=== PATIENT | male | born 1970 | race Caucasian/White ===

== ENCOUNTER 2018-09-26 21:22 | Emergency (ER) | payer BC ==
[2018-09-26] MEDS ORDERED: Diph,Pert(Acell),Tet Vac 0.5 ML SYR IM ONE (21:48)
--- NOTE | 2018-09-26 21:54 | Emergency Department Record ---
History of Present Illness - General Chief Complaint: Fall Injury Stated Complaint: FALL INJURY Time Seen by Provider: 09/26/18 21:44 Source: Patient Mode of Arrival: Ambulatory Limitations: No limitations - History of Present Illness Initial Comments: 48 yo male presents about 2 hours after a fall in his barn. He tripped over boards on the floor. He hit hit forehead, nose, left hand and right [place]. No LOC. The nose does not hurt. No dental injury. No neck pain. No chest injury or back injury. His left hand is tender, mild swelling and bruising. Intact skin to the hand. He had a small contusion of the right anterior [place]. His tetanus is not up to date. MD Complaint: Fall Onset/Timin -: Hour(s) (2) Fall From: Standing When Fall Occurred: 1-3 hours [employer] Fall Witnessed: No Place Fall Occurred: Home Loss of Consciousness: None Prolonged Down Time?: No Symptoms Prior to Fall: None Location: Face, Other Location - Extremities: Left: Hand, Right: Lower Leg Severity: Mild Severity scale (1-10): 1 Context: Tripped/slipped Associated Symptoms: Denies - [place] Coma Scale Eye Response: (4) Open spontaneously Motor Response: (6) Obeys commands Verbal Response: (5) Oriented [place]is Total: 15 - Related Data Home Medications Medication Instructions Recorded Confirmed Last Taken Losartan/Hydrochlorothiazide 100 mg PO DAILY 09/26/18 09/26/18 Unknown [Losartan-Hctz 100-25 mg Tab] Meloxicam 7.5 mg PO DAILY 09/26/18 09/26/18 Unknown Metformin HCl 500 mg PO BID 09/26/18 09/26/18 Unknown Allergies Allergy/AdvReac Type Severity Reaction Status Date / Time capsaicin [From ZOSTRIX] Allergy Unknown RASH Verified 09/26/18 21:27 lisinopril Allergy ANAPHYLAXIS Verified 09/26/18 21:27 acetaminophen [From Vicodin] AdvReac tired Verified 09/26/18 21:27 hydrocodone bitartrate AdvReac tired Verified 09/26/18 21:27 [From Vicodin] Travel Screening - Travel/Exposure Within Last 30 Days Have you traveled within the last 30 days?: No - Travel/Exposure Within Last Year Have you traveled outside the [place] in the last year?: No - Additonal Travel Details Have you been exposed to anyone with a communicable illness?: No - Travel Symptoms Symptom Screening: None Review of Systems Constitutional: Denies: Chills, Fever, Malaise, Weakness Eyes: Denies: Eye discharge ENT: Denies: Congestion, Throat pain Respiratory: Denies: Cough, Dyspnea, Hemoptysis, Stridor, Wheezes Cardiovascular: Denies: Chest pain, Palpitations, Syncope Endocrine: Denies: Fatigue Gastrointestinal: Denies: Abdominal pain, Diarrhea, Nausea, Vomiting Genitourinary: Denies: Dysuria, Frequency, Hematuria Musculoskeletal: Reports: As per HPI, Arthralgia, Joint swelling. Denies: Myalgia Skin: Reports: As per HPI, Bruising Neurological: Denies: Numbness, Tingling, Tremors Psychiatric: Denies: Anxiety Hematological/Lymphatic: Denies: Blood Clots, Easy bruising Past Medical History - SOCIAL HISTORY Smoking Status: Never smoker Alcohol Use: Rare Drug Use: None - RESPIRATORY Hx Respiratory Disorders: Yes Hx Sleep Apnea: Yes Hx of CPAP: Yes - CARDIOVASCULAR Hx Cardio Disorders: Yes Hx Hypertension: Yes - NEURO Hx Neuro Disorders: Yes Hx Neuropathy: Yes - GI Hx GI Disorders: No - Hx Genitourinary Disorders: No - ENDOCRINE Hx Endocrine Disorders: Yes Hx Diabetes: Yes - MUSCULOSKELETAL Hx Musculoskeletal Disorders: Yes Hx Back Injury: Yes Hx Musculoskeletal Disease: Yes - PSYCH Hx Psych Problems: No - HEMATOLOGY/ONCOLOGY Hx Hematology/Oncology Disorders: No Family Medical History Any Significant Family History?: No Hx Cancer: Mother Hx Stroke: Father, Mother Physical Exam - General General Appearance: Alert, Oriented x3, Cooperative, No acute distress Limitations: No limitations - Head Head exam: negative: Atraumatic, Normal inspection Head exam detail: Abrasion. negative: Hematoma, Laceration Image of Face/Head: 1 - no swelling, very superficial abrasion, no deformity - Eye Eye exam: PERRL, EOMI. negative: Conjunctival injection, Periorbital swelling, Periorbital tenderness - ENT ENT exam: Normal exam Ear exam: Normal external inspection Nasal Exam: Dried blood (scant dried blood left nostril). negative: Normal inspection, Active bleeding, Discharge Mouth exam: Normal external inspection Teeth exam: Normal inspection Throat exam: Normal inspection - Neck Neck exam: Normal inspection, Full ROM. negative: Tenderness - Respiratory Respiratory exam: Normal lung sounds bilaterally. negative: Respiratory distress - Cardiovascular Cardiovascular Exam: Regular rate, Normal rhythm, Normal heart sounds - GI/Abdominal GI/Abdominal exam: Soft. negative: Tenderness - Extremities Extremities exam: Full ROM, Joint swelling, Tenderness. negative: Normal inspection Image of Hand: 1 - mild swelling and bruising, intact skin, no deformity, full ROM - Neurological Neurological exam: Alert, Oriented X3 - Psychiatric Psychiatric exam: negative: Agitated, Anxious - Skin Skin exam: Abrasion Course Vital Signs 09/26/18 21:36 Temperature 97.5 F L Pulse Rate 73 Respiratory 18 Rate Blood Pressure 154/90 Pulse Ox 73 L - Reevaluation(s) Reevaluation #1: 09/26/18 22:17 The XR was reviewed. There is an old healed distal ulnar injury. Clinically correlated examination reveals no pain in this area. He had a wrist fracture in the 4th grade and states this has been mentioned on prior XR's. When I examine the ulnar styloid it is not tender to palpation 09/26/18 22:19 The Tdap was updated in the ED 09/26/18 22:29 He will be splinted for support, comfort, and protection of the injured area Disposition Disposition: Discharge Clinical Impression: Contusion of hand, left Qualifiers: Encounter type: initial encounter Qualified Code(s): S60.222A - Contusion of left hand, initial encounter Disposition: Home, Self-Care Condition: (1) Good Instructions: Hand Sprain (ED) Additional Instructions: Call your doctor for the next available follow up appointment if the pain last more than a week Ice the hand and elevate the hand over the weekend. No left hand work this weekend to allow the hand to rest and heal Return to the ER for a recheck if worse, any new concerns or questions Review this ER visit and the tests performed with your family doctor Forms: Patient Portal Access Time of Disposition: 22:19 Quality - Quality Measures Quality Measures: N/A - Blood Pressure Screening Does Patient Have Any of the Following: Active Dx of HTN Blood Pressure Classification: Hypertensive Reading Systolic Measurement: 154 Diastolic Measurement: 90 Screening for High Blood Pressure: Patient Exclusion, Hx of HTN [[id number]]
--- NOTE | 2018-09-28 21:45 | RADIOLOGY REPORT ---
EXAM: HAND, LEFT 3 VIEWS HISTORY: HISTORY OF FALL. TECHNIQUE: Three views of the left hand are provided without comparison examinations. FINDINGS: There is a well-corticated osseous density identified in the region of the ulnar styloid process, which suggests a chronic fracture. No acute fractures are identified. No significant soft tissue swelling is noted. No radiopaque foreign bodies are identified. IMPRESSION: NO RADIOGRAPHIC EVIDENCE OF AN ACUTE FRACTURE OR DISLOCATION OF THE LEFT HAND. THERE IS A WELL-CORTICATED OSSEOUS DENSITY IDENTIFIED AT THE ULNAR STYLOID PROCESS, WHICH LIKELY REPRESENTS A CHRONIC FRACTURE. CLINICAL CORRELATION IS RECOMMENDED. JOB NUMBER: [id number] MTDD
== END 2018-09-26 22:36 | disposition home or self-care (01) ==
LOC: ER 21:22
DX: S60.222A Contusion of left hand, initial encounter (principal); S80.11XA Contusion of right lower leg, initial encounter; S00.31XA Abrasion of nose, initial encounter; W01.10XA Fall on same level from slipping, tripping and stumbling with subsequent striking against unspecified object, initial encounter; Y92.71 Barn as the place of occurrence of the external cause; E11.9 Type 2 diabetes mellitus without complications; I10 Essential (primary) hypertension
CPT/HCPCS: 90715; 96372; 99283; 99284